=== PATIENT | female | born 1985 | race Caucasian/White ===

== ENCOUNTER 2017-04-27 17:56 | Inpatient (IN) | payer MEDICAID, OTHER ==
[2017-04-27 18:10] VITALS: BMI 31.3
--- NOTE | 2017-04-27 19:17 | C.PDOC ---
History Of Present Illness 31 y/o female presents to ED with complaints of worsening fatigue for 3 weeks. Patient was referred by PMD (Dr. Guerra) for outpatient labs on Monday and had a Hemoglobin of 7.8 and has scheduled elective tubal ligation with Dr. Love in the near future. Denies DUB, dark stools. Was running for exercise until about 3 weeks ago, not unable due to SOB. h/o GBP surgery 2008 with chronic iron deficiency anemia due to GI loss, usually well controlled with PO iron supplements but does NOT have a Waste Hand and has not had upper endoscopy since 2008. Patient reports sob when running and currently denies dizziness, palpitations, fever, chills or any other complaints at this time. Time Seen by Provider: 04/27/17 18:56 Chief Complaint (Nursing): Abnormal Labs History Per: Patient History/Exam Limitations: no limitations Onset/Duration Of Symptoms: Days Current Symptoms Are (Timing): Still Present Past Medical History Reviewed: Historical Data, Nursing Documentation, Vital Signs Vital Signs: Last Vital Signs Temp 98.0 F 04/27/17 18:12 Pulse 88 04/27/17 18:37 Resp 18 04/27/17 18:37 BP 106/70 04/27/17 18:37 Pulse Ox 99 04/27/17 21:13 - Medical History PMH: Anemia Surgical History: No Surg Hx - [facility] Procedures LOW CERVICAL (03/04/13) PACKED CELL TRANSFUSION (11/06/12) Family History: States: No Known Family Hx - Social History Hx Alcohol Use: Yes Hx Substance Use: No - Immunization History Hx Tetanus Toxoid Vaccination: No Hx Influenza Vaccination: No Hx Pneumococcal Vaccination: No Review Of Systems Except As Marked, All Systems Reviewed And Found Negative. Constitutional: Negative for: Fever, Chills Cardiovascular: Negative for: Palpitations Respiratory: Positive for: Shortness of Breath Gastrointestinal: Negative for: Nausea, Vomiting Skin: Negative for: Rash Neurological: Positive for: Other (fatigue) Physical Exam - Physical Exam Appears: Non-toxic, No Acute Distress Skin: Normal Color, Warm, Dry, No Rash Head: Atraumatic, Normacephalic Oral Mucosa: Moist Neck: Normal ROM, Supple Chest: Symmetrical Cardiovascular: Rhythm Regular Respiratory: Normal Breath Sounds, No Rales, No Rhonchi, No Wheezing Gastrointestinal/Abdominal: Soft, No Tenderness, No Guarding, No Rebound Extremity: Normal ROM, No Pedal Edema Neurological/Psych: Oriented x3, Normal Speech, Normal Motor, Normal Sensation ED Course And Treatment - Laboratory Results Result Diagrams: 04/27/17 19:31 04/27/17 19:20 O2 Sat by Pulse Oximetry: 99 (RA) Pulse Ox Interpretation: Normal Reevaluation Time: 21:36 Reassessment Condition: Improved - Physician Consult Information Outcome Of Conversation: [id number]: Stephen Love- no acute PIN CLEANER issues now, will consult PRN. 2114: stephen Blackmon- Hospitalist covering pts for Dr. Guerra, ok to admit. Please start blood transfusions. Medical Decision Making Medical Decision Making: probably chronic upper GI bleeding related to GBP 2008- requires GI consult- consider upper GI endoscopy. Disposition Doctor Will See Patient In The: Hospital Counseled Patient/Family Regarding: Studies Performed, Diagnosis - Disposition Disposition: HOSPITALIZED Disposition Time: 21:39 Condition: GOOD Forms: [facility] (Polish) - Clinical Impression Clinical Impression: Iron deficiency anemia - Scribe Statement The provider has reviewed the documentation as recorded by the Scribapple Morris All medical record entries made by the Dinhib[employer] were at my direction and personally dictated by me. I have reviewed the chart and agree that the record accurately reflects my personal performance of the history, physical exam, medical decision making, and the department course for this patient. I have also personally directed, reviewed, and agree with the discharge instructions and disposition.
[2017-04-27 19:39] LABS: CHLORIDE 101 mmol/L (98-107); POTASSIUM 3.7 mmol/L (3.6-5.2); SODIUM 135 mmol/L (132-148)
[2017-04-27 19:42] LABS: ALB/GLOB RATIO 1.5 (1.0-2.1); ALKALINE PHOSPHATASE 65 U/L (38-126); ALT/SGPT 38 U/L (9-52); AST/SGOT 24 U/L (14-36); BILIRUBIN,TOTAL 0.6 mg/dL (0.2-1.3); BLOOD UREA NITROGEN 11 mg/dL (7-17); CALCIUM 8.4 mg/dl (8.6-10.4); CARBON DIOXIDE 22 mmol/L (22-30); GFR AFRICAN-AMERICAN > 60; GLUCOSE,RANDOM 183 mg/dL (65-105); TOTAL PROTEIN 7.3 g/dL (6.3-8.3)
[2017-04-27 19:43] LABS: INR 1.1
[2017-04-27 20:10] LABS: BASO # 0.1 K/uL (0.0-0.2); BASO % 0.6 % (0.0-2.0); EOS # 0.1 K/uL (0.0-0.7); EOS % 1.5 % (0.0-4.0); HEMATOCRIT 25.1 % (34.0-47.0); LYMPH # 2.6 K/uL (1.0-4.3); LYMPH % 32.9 % (20.0-40.0); MEAN CORPUSCULAR HEMOGLOBIN 16.6 pg (27.0-31.0); MEAN CORPUSCULAR HGB CONC 29.1 g/dL (33.0-37.0); MEAN PLATELET VOLUME 8.6 fL (7.2-11.7); MONO # 0.8 K/uL (0.0-0.8); MONO % 10.2 % (0.0-10.0); RED CELL DISTRIBUTION WIDTH 19.5 % (11.5-14.5); WHITE BLOOD COUNT 7.9 K/uL (4.8-10.8)
[2017-04-27 20:10] LABS: RBC URINE 6 /hpf (0-3); TRANSITIONAL EPITHIAL < 1 /hpf (0-3); URINE BACTERIA MOD (<OCC); URINE BILIRUBIN NEGATIVE (NEGATIVE); URINE BLOOD 2+ (NEGATIVE); URINE COLOR Yellow (YELLOW); URINE GLUCOSE (UA) 3+ mg/dL (Normal); URINE KETONE NEGATIVE (NEGATIVE); URINE PROTEIN NEGATIVE (NEGATIVE); URINE UROBILINOGEN NORMAL mg/dL (0.2-1.0); WBC URINE 30 /hpf (0-5)
[2017-04-27 20:13] LABS: URINE LEUKOCYTE ESTERASE 3+ Leu/uL (Negative)
[2017-04-27 23:02] VITALS: RESP 20
--- NOTE | 2017-04-27 23:40 | CP.PCM.HP ---
<Neetu HurdJack - Last Filed: 04/28/17 02:49> History of Present Illness - History of Present Illness History of Present Illness: CC: "My primary doctor told me to come to the ED" HPI: 31 year old female with past medical history of diabetes and gastric bypass surgery presents to the ED because her primary doctor told her she was anemic and needed to go to the ER on Monday. Patient states she went to the ER at [facility] on Monday and they sent her home and stated she did not need a blood transfusion. Patient stated she followed up with her PMD and he told her once again to come to the ED. She stated she has had 2 blood transfusions in the past and that her anemia began after her gastric bypass surgery in 2008. Patient states she has never been seen by a GI doctor and states she has never had a colonoscopy or a endoscopy done. She states she recently had an abnormal papsmer and had an endometrial biopsy done in the office with her mannequin wig maker Dr. Love. Patient denies vaginal bleeding. She states she has been feeling tired for the past 2-3 weeks and she has been going to bed by 8:30pm which is not normal for her to go to sleep that early. She also states she has stopped running for 2 weeks. She denies shortness of breath, palpitations, chest pain, nausea, vomiting, hematuria, or blood in her stool. PMD: Dr. Shereen Guerra NET ARCHITECT: Dr. 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 Present on Admission - Present on Admission Any Indicators Present on Admission: No Review of Systems - Constitutional Constitutional: Fatigue. absent: Fever, Headache, Night Sweats, Weakness - EENT Eyes: absent: Blurred Vision, Change in Vision - Cardiovascular Cardiovascular: absent: Chest Pain, Dyspnea, Lightheadedness, Palpitations - Respiratory Respiratory: absent: Dyspnea - Gastrointestinal Gastrointestinal: absent: Constipation, Diarrhea, Nausea, Vomiting - Genitourinary Genitourinary: absent: Dysuria, Hematuria - Neurological Neurological: absent: Dizziness, Numbness, Headaches, Tingling, Weakness - Endocrine Endocrine: Fatigue. absent: Palpitations Past Patient History - Past Social History Smoking Status: Never Smoked - ENDOCRINE/METABOLIC Hx Diabetes Mellitus Type 2: Yes - HEMATOLOGICAL/ONCOLOGICAL Hx Anemia: Yes - PSYCHIATRIC Hx Substance Use: No - SURGICAL HISTORY Hx Surgeries: No - ANESTHESIA Hx Anesthesia: No Meds Allergies/Adverse Reactions: Allergies Allergy/AdvReac Type Severity Reaction Status Date / Time No Known Allergies Allergy Unverified 04/27/17 18:40 Physical Exam - Constitutional Appears: No Acute Distress - Head Exam Head Exam: ATRAUMATIC, NORMAL INSPECTION, NORMOCEPHALIC - Eye Exam Eye Exam: EOMI, Normal appearance, PERRL Pupil Exam: NORMAL ACCOMODATION - ENT Exam ENT Exam: Mucous Membranes Moist - Respiratory Exam Respiratory Exam: Clear to Auscultation Bilateral, NORMAL BREATHING PATTERN. absent: Rales, Rhonchi, Wheezes - Cardiovascular Exam Cardiovascular Exam: REGULAR RHYTHM, RRR, +S1, +S2. absent: JVD - GI/Abdominal Exam GI & Abdominal Exam: Normal Bowel Sounds, Soft. absent: Tenderness - Extremities Exam Extremities exam: Positive for: normal inspection. Negative for: pedal edema, tenderness - Neurological Exam Neurological exam: Alert, CN II-XII Intact, Oriented x3 - Expanded Neurological Exam Expanded Patient oriented to: person, place, time Sensory exam: Lower Extremity Light Touch: Normal, Upper Extremity Light Touch: Normal Neuro motor strength exam: Left Upper Extremity: 5, Right Upper Extremity: 5, Left Lower Extremity: 5, Right Lower Extremity: 5 Coma Scale Eye Opening: SPONTANEOUS Coma Scale Motor Response: OBEYS COMMANDS - Psychiatric Exam Psychiatric exam: Normal Affect, Normal Mood - Skin Skin Exam: Normal Color, Warm Results - Vital Signs Recent Vital Signs: Last Vital Signs Temp 98.3 F 04/27/17 22:45 Pulse 77 04/27/17 22:45 Resp 20 04/27/17 22:45 BP 106/67 04/27/17 22:45 Pulse Ox 99 04/27/17 21:44 - Labs Result Diagrams: 04/27/17 19:31 04/27/17 19:20 Labs: Laboratory Results - last 24 hr 04/27/17 04/27/17 04/27/17 19:20 19:31 19:31 WBC 7.9 RBC 4.40 Hgb 7.3 L Hct 25.1 L MCV 57.0 L MCH 16.6 L MCHC 29.1 L RDW 19.5 H Plt Count 304 MPV 8.6 Neut % (Auto) 54.8 Lymph % (Auto) 32.9 Armstrong % (Auto) 10.2 H Eos % (Auto) 1.5 Baso % (Auto) 0.6 Neut # 4.3 Lymph # 2.6 Armstrong # 0.8 Eos # 0.1 Baso # 0.1 PT 12.0 INR 1.1 APTT 27 Sodium 135 Potassium 3.7 Chloride 101 Carbon Dioxide 22 Anion Gap 16 BUN 11 Creatinine 0.7 Est GFR ( Amer) > 60 Est GFR (Non-Af Amer) > 60 Random Glucose 183 H Calcium 8.4 L Total Bilirubin 0.6 AST 24 ALT 38 Alkaline Phosphatase 65 Total Protein 7.3 Albumin 4.3 Globulin 2.9 Albumin/Globulin Ratio 1.5 Urine Color Urine Clarity Urine pH Ur Specific Spring Urine Protein Urine Glucose (UA) Urine Ketones Urine Blood Urine Nitrate Urine Bilirubin Urine Urobilinogen Ur Leukocyte Esterase Urine WBC (Auto) Urine RBC (Auto) Ur Squamous Epith Cells Ur Transition Epith Cell Urine Bacteria Urine HCG, Qual Urine Opiates Screen Urine Methadone Screen Ur Barbiturates Screen Ur Phencyclidine Scrn Ur Amphetamines Screen U Benzodiazepines Scrn U Oth Cocaine Metabols U Cannabinoids Screen Blood Type Antibody Screen 04/27/17 04/27/17 04/27/17 19:50 19:50 21:22 WBC RBC Hgb Hct MCV MCH MCHC RDW Plt Count MPV Neut % (Auto) Lymph % (Auto) Armstrong % (Auto) Eos % (Auto) Baso % (Auto) Neut # Lymph # Armstrong # Eos # Baso # PT INR APTT Sodium Potassium Chloride Carbon Dioxide Anion Gap BUN Creatinine Est GFR ( Amer) Est GFR (Non-Af Amer) Random Glucose Calcium Total Bilirubin AST ALT Alkaline Phosphatase Total Protein Albumin Globulin Albumin/Globulin Ratio Urine Color Yellow Urine Clarity Hazy Urine pH 5.0 Ur Specific Spring 1.028 Urine Protein Negative Urine Glucose (UA) 3+ H Urine Ketones Negative Urine Blood 2+ H Urine Nitrate Positive H Urine Bilirubin Negative Urine Urobilinogen Normal Ur Leukocyte Esterase 3+ H Urine WBC (Auto) 30 H Urine RBC (Auto) 6 H Ur Squamous Epith Cells 7 H Ur Transition Epith Cell < 1 Urine Bacteria Mod H Urine HCG, Qual Negative Urine Opiates Screen Negative Urine Methadone Screen Negative Ur Barbiturates Screen Negative Ur Phencyclidine Scrn Negative Ur Amphetamines Screen Negative U Benzodiazepines Scrn Negative U Oth Cocaine Metabols Negative U Cannabinoids Screen Negative Blood Type B POSITIVE Antibody Screen Negative Assessment & Plan - Assessment and Plan (Free Text) Assessment: 1.) Acute Anemia - H/H on admission (04/27): 7.3/.1 - Type & Cross - 1 unit of PRBC given - Monitor H/H - f/u stool occult blood x2 - f/u Iron studies - If acute anemia does not improve may need to consult GI as an inpatient vs. outpatient 2.) Prophylaxis - VTE contraindication secondary to acute anemia - Pepcid 20mg daily - SCDs Case discussed with Dr. Lorri Hurd PGY-1 <Roly Blackmon - Last Filed: 04/28/17 04:13> Results - Vital Signs Recent Vital Signs: Last Vital Signs Temp 98.1 F 04/28/17 01:58 Pulse 64 04/28/17 01:58 Resp 20 04/28/17 01:58 BP 104/64 04/28/17 01:58 Pulse Ox 97 04/28/17 00:00 - Labs Result Diagrams: 04/27/17 19:31 04/27/17 19:20 Labs: Laboratory Results - last 24 hr 04/27/17 04/27/17 04/27/17 19:20 19:31 19:31 WBC 7.9 RBC 4.40 Hgb 7.3 L Hct 25.1 L MCV 57.0 L MCH 16.6 L MCHC 29.1 L RDW 19.5 H Plt Count 304 MPV 8.6 Neut % (Auto) 54.8 Lymph % (Auto) 32.9 Armstrong % (Auto) 10.2 H Eos % (Auto) 1.5 Baso % (Auto) 0.6 Neut # 4.3 Lymph # 2.6 Armstrong # 0.8 Eos # 0.1 Baso # 0.1 PT 12.0 INR 1.1 APTT 27 Sodium 135 Potassium 3.7 Chloride 101 Carbon Dioxide 22 Anion Gap 16 BUN 11 Creatinine 0.7 Est GFR ( Amer) > 60 Est GFR (Non-Af Amer) > 60 Random Glucose 183 H Calcium 8.4 L Total Bilirubin 0.6 AST 24 ALT 38 Alkaline Phosphatase 65 Total Protein 7.3 Albumin 4.3 Globulin 2.9 Albumin/Globulin Ratio 1.5 Urine Color Urine Clarity Urine pH Ur Specific Spring Urine Protein Urine Glucose (UA) Urine Ketones Urine Blood Urine Nitrate Urine Bilirubin Urine Urobilinogen Ur Leukocyte Esterase Urine WBC (Auto) Urine RBC (Auto) Ur Squamous Epith Cells Ur Transition Epith Cell Urine Bacteria Urine HCG, Qual Urine Opiates Screen Urine Methadone Screen Ur Barbiturates Screen Ur Phencyclidine Scrn Ur Amphetamines Screen U Benzodiazepines Scrn U Oth Cocaine Metabols U Cannabinoids Screen Blood Type Antibody Screen 04/27/17 04/27/17 04/27/17 19:50 19:50 21:22 WBC RBC Hgb Hct MCV MCH MCHC RDW Plt Count MPV Neut % (Auto) Lymph % (Auto) Armstrong % (Auto) Eos % (Auto) Baso % (Auto) Neut # Lymph # Armstrong # Eos # Baso # PT INR APTT Sodium Potassium Chloride Carbon Dioxide Anion Gap BUN Creatinine Est GFR ( Amer) Est GFR (Non-Af Amer) Random Glucose Calcium Total Bilirubin AST ALT Alkaline Phosphatase Total Protein Albumin Globulin Albumin/Globulin Ratio Urine Color Yellow Urine Clarity Hazy Urine pH 5.0 Ur Specific Spring 1.028 Urine Protein Negative Urine Glucose (UA) 3+ H Urine Ketones Negative Urine Blood 2+ H Urine Nitrate Positive H Urine Bilirubin Negative Urine Urobilinogen Normal Ur Leukocyte Esterase 3+ H Urine WBC (Auto) 30 H Urine RBC (Auto) 6 H Ur Squamous Epith Cells 7 H Ur Transition Epith Cell < 1 Urine Bacteria Mod H Urine HCG, Qual Negative Urine Opiates Screen Negative Urine Methadone Screen Negative Ur Barbiturates Screen Negative Ur Phencyclidine Scrn Negative Ur Amphetamines Screen Negative U Benzodiazepines Scrn Negative U Oth Cocaine Metabols Negative U Cannabinoids Screen Negative Blood Type B POSITIVE Antibody Screen Negative Assessment & Plan - Date & Time Date: 04/28/17 (I have seen and examined the patient. I agree with the findings and plan of care as documented by Dr. Hurd. Patient with symptomatic anemia. History of gastric bypass. Check iron studies. B12 and Folate. Retic count. Transfuse 2 units PRBCs. Check stool OBx2. Monitor for acute changes in hemodynamic status.) Time: 04:11 Attending/Attestation - Attestation I have personally seen and examined this patient.: Yes I have fully participated in the care of the patient.: Yes I have reviewed all pertinent clinical information: Yes
[2017-04-28 07:49] VITALS: BP 95/66; PULSE 76; TEMP 97.8; O2SAT 96
[2017-04-28] MEDS: (Novolin R) Insulin Human Regular 100 units/ml vial SC SCH ×2 (08:15→12:20)
[2017-04-28 08:16] LABS: BASO % 0.4 % (0.0-2.0); EOS # 0.1 K/uL (0.0-0.7); EOS % 1.5 % (0.0-4.0); HEMATOCRIT 26.1 % (34.0-47.0); LYMPH # 2.1 K/uL (1.0-4.3); LYMPH % 29.8 % (20.0-40.0); MEAN CELL VOLUME 59.6 fL (81.0-99.0); MEAN CORPUSCULAR HEMOGLOBIN 18.4 pg (27.0-31.0); MEAN CORPUSCULAR HGB CONC 30.8 g/dL (33.0-37.0); MEAN PLATELET VOLUME 8.6 fL (7.2-11.7); MONO # 0.6 K/uL (0.0-0.8); MONO % 8.7 % (0.0-10.0); RED CELL DISTRIBUTION WIDTH 21.8 % (11.5-14.5); RETIC% 1.5 % (0.5-1.5); WHITE BLOOD COUNT 7.1 K/uL (4.8-10.8)
[2017-04-28 08:49] LABS: CHLORIDE 102 mmol/L (98-107); SODIUM 135 mmol/L (132-148)
[2017-04-28 08:51] LABS: ALB/GLOB RATIO 1.4 (1.0-2.1); ALKALINE PHOSPHATASE 57 U/L (38-126); ALT/SGPT 37 U/L (9-52); AST/SGOT 22 U/L (14-36); BILIRUBIN,TOTAL 1.4 mg/dL (0.2-1.3); BLOOD UREA NITROGEN 9 mg/dL (7-17); CARBON DIOXIDE 25 mmol/L (22-30); GFR AFRICAN-AMERICAN > 60; TOTAL PROTEIN 6.2 g/dL (6.3-8.3)
[2017-04-28 08:52] LABS: GLUCOSE,RANDOM 107 mg/dL (65-105); MAGNESIUM 1.5 mg/dL (1.6-2.3)
--- NOTE | 2017-04-28 12:49 | CP.PCM.DIS ---
<Madison Levy V - Last Filed: 04/29/17 23:39> Provider - Provider Date of Admission: 04/27/17 21:14 Attending physician: Roly Blackmon MD Diagnosis - Discharge Diagnosis (1) Symptomatic anemia Status: Acute Comment: s/p RBC transfusion. No adverse effects noted per nursing staff. Patient recommended compliance on PO iron supplementation and recommended to follow-up with GI for outpatient endoscopy. (2) History of gastric bypass Status: Chronic Comment: Patient encouraged to remain compliant on PO iron supplementation and MVI given her history of gastric bypass surgery 5 years ago. (3) Iron deficiency anemia Status: Chronic Comment: Patient encouraged to remain compliant on PO iron supplementation. Encourage absoprtion with vitamin C or orange juice. Encourage fiber intake to prevent constipaton. Given stool softeners to reduce constipation. Recommended to follow-up outpatient with GI for endoscopy in light of gastric bypass history. Hospital Course - Lab Results Lab Results: Most Recent Lab Values WBC 7.1 K/uL (4.8-10.8) 04/28/17 08:01 RBC 4.37 Mil/uL (3.80-5.20) 04/28/17 08:01 Hgb 8.0 g/dL (11.0-16.0) L 04/28/17 08:01 Hct 26.1 % (34.0-47.0) L 04/28/17 08:01 MCV 59.6 fL (81.0-99.0) L D 04/28/17 08:01 MCH 18.4 pg (27.0-31.0) L 04/28/17 08:01 MCHC 30.8 g/dL (33.0-37.0) L 04/28/17 08:01 RDW 21.8 % (11.5-14.5) H 04/28/17 08:01 Plt Count 264 K/uL (130-400) 04/28/17 08:01 MPV 8.6 fL (7.2-11.7) 04/28/17 08:01 Neut % (Auto) 59.6 % (50.0-75.0) 04/28/17 08:01 Lymph % (Auto) 29.8 % (20.0-40.0) 04/28/17 08:01 Assumption % (Auto) 8.7 % (0.0-10.0) 04/28/17 08:01 Eos % (Auto) 1.5 % (0.0-4.0) 04/28/17 08:01 Baso % (Auto) 0.4 % (0.0-2.0) 04/28/17 08:01 Neut # 4.2 K/uL (1.8-7.0) 04/28/17 08:01 Lymph # 2.1 K/uL (1.0-4.3) 04/28/17 08:01 Assumption # 0.6 K/uL (0.0-0.8) 04/28/17 08:01 Eos # 0.1 K/uL (0.0-0.7) 04/28/17 08:01 Baso # 0.0 K/uL (0.0-0.2) 04/28/17 08:01 Differential Comment 04/28/17 08:01 Retic Count 1.5 % (0.5-1.5) 04/28/17 08:01 PT 12.0 SECONDS (9.7-12.2) 04/27/17 19:31 INR 1.1 04/27/17 19:31 APTT 27 SECONDS (21-34) 04/27/17 19:31 Sodium 135 mmol/L (132-148) 04/28/17 08:01 Potassium 4.0 mmol/L (3.6-5.2) 04/28/17 08:01 Chloride 102 mmol/L (98-107) 04/28/17 08:01 Carbon Dioxide 25 mmol/L (22-30) 04/28/17 08:01 Anion Gap 11 (10-20) 04/28/17 08:01 BUN 9 mg/dL (7-17) 04/28/17 08:01 Creatinine 0.7 mg/dL (0.7-1.2) 04/28/17 08:01 Est GFR ( Amer) > 60 04/28/17 08:01 Est GFR (Non-Af Amer) > 60 04/28/17 08:01 POC Glucose (mg/dL) 115 mg/dL (65-110) H 04/28/17 10:52 Random Glucose 107 mg/dL (65-105) H 04/28/17 08:01 Calcium 8.0 mg/dl (8.6-10.4) L 04/28/17 08:01 Phosphorus 3.0 mg/dL (2.5-4.5) 04/28/17 08:01 Magnesium 1.5 mg/dL (1.6-2.3) L 04/28/17 08:01 Ferritin 3.2 ng/mL 04/28/17 08:01 Total Bilirubin 1.4 mg/dL (0.2-1.3) H 04/28/17 08:01 AST 22 U/L (14-36) 04/28/17 08:01 ALT 37 U/L (9-52) 04/28/17 08:01 Alkaline Phosphatase 57 U/L (38-126) 04/28/17 08:01 Total Protein 6.2 g/dL (6.3-8.3) L 04/28/17 08:01 Albumin 3.6 g/dL (3.5-5.0) 04/28/17 08:01 Globulin 2.6 gm/dL (2.2-3.9) 04/28/17 08:01 Albumin/Globulin Ratio 1.4 (1.0-2.1) 04/28/17 08:01 Vitamin B12 240 pg/mL (239-931) 04/28/17 08:01 Folate 12.0 ng/mL 04/28/17 08:01 Urine Color Yellow (YELLOW) 04/27/17 19:50 Urine Clarity Hazy (Clear) 04/27/17 19:50 Urine pH 5.0 (5.0-8.0) 04/27/17 19:50 Ur Specific Orwell 1.028 (1.003-1.030) 04/27/17 19:50 Urine Protein Negative mg/dL (NEGATIVE) 04/27/17 19:50 Urine Glucose (UA) 3+ mg/dL (Normal) H 04/27/17 19:50 Urine Ketones Negative mg/dL (NEGATIVE) 04/27/17 19:50 Urine Blood 2+ (NEGATIVE) H 04/27/17 19:50 Urine Nitrate Positive (NEGATIVE) H 04/27/17 19:50 Urine Bilirubin Negative (NEGATIVE) 04/27/17 19:50 Urine Urobilinogen Normal mg/dL (0.2-1.0) 04/27/17 19:50 Ur Leukocyte Esterase 3+ Josefa/uL (Negative) H 04/27/17 19:50 Urine WBC (Auto) 30 /hpf (0-5) H 04/27/17 19:50 Urine RBC (Auto) 6 /hpf (0-3) H 04/27/17 19:50 Ur Squamous Epith Cells 7 /hpf (0-5) H 04/27/17 19:50 Ur Transition Epith Cell < 1 /hpf (0-3) 04/27/17 19:50 Urine Bacteria Mod (<OCC) H 04/27/17 19:50 Urine HCG, Qual Negative (NEGATIVE) 04/27/17 19:50 Urine Opiates Screen Negative (NEGATIVE) 04/27/17 19:50 Urine Methadone Screen Negative (NEGATIVE) 04/27/17 19:50 Ur Barbiturates Screen Negative (NEGATIVE) 04/27/17 19:50 Ur Phencyclidine Scrn Negative (NEGATIVE) 04/27/17 19:50 Ur Amphetamines Screen Negative (NEGATIVE) 04/27/17 19:50 U Benzodiazepines Scrn Negative (NEGATIVE) 04/27/17 19:50 U Oth Cocaine Metabols Negative (NEGATIVE) 04/27/17 19:50 U Cannabinoids Screen Negative (NEGATIVE) 04/27/17 19:50 Blood Type B POSITIVE 04/27/17 21:22 Antibody Screen Negative 04/27/17 21:22 Discharge Plan - Follow Up Plan Condition: STABLE Disposition: HOME/ ROUTINE Instructions: Iron Supplements (By mouth), Laxative, Stool Softeners (By mouth) , Iron Rich Diet (DC), Iron Deficiency Anemia (DC), Anemia (DC) Additional Instructions: Please follow up with your primary medical physician within 1 week Please schedule an appointment with GI doctor for outpatient EGD. Please take medications as instructed. Please increase the fiber in diet to help for constipation. We suggest taking over the counter "Psyllium" as well. New Meds: Ferrous Sulfate 325 TID, and Colace 100mg TID. Cont. to take multivitamins and metformin. If your symptoms return or worsen, please return to emergency room. Referrals: Shereen Guerra MD [Medical Doctor] - Attending/Attestation - Attestation I have personally seen and examined this patient.: Yes I have fully participated in the care of the patient.: Yes I have reviewed all pertinent clinical information, including history, physical exam and plan: Yes Notes (Text): This is late computer entry for 04/28/2017. Patient seen, examined and case discussed with day-time resident. Patient s/p 1 unit of PRBC overnight. No adverse events noted. Patient reports she feels very energetic and wants to know if she can go to work. Patient is non-compliant with her iron supplementation and multivitamin s/p gastric bypass surgery from 5 years ago. Patient reports she sometimes remembers to take it and sometimes not. Instructed patient given part of gastric bypass surgery instruction is that she will be on for life given the nature of that surgery affects the absorption of fat soluble vitamins and iron. Patient also notes that part of the reason why she is not compliant is the constipation. Patient instructed she needs to increase fiber in her diet such can do with over the counter fiber supplement such as Benefiber or natural sources such as Psyillum husks which can add bulk to water, milk. Patient also instructed to take with [place] Juice (which has vitamin C) to help with absorption. Patient denies hx of heavy menstrual periods. Patient was also recommended by her PMD to follow-up with GI for endoscopy. Patient denies use of OTC NSAIDs or excessive alcohol use; patient instructed part of endoscopy to make sure there is no source of bleeding. Patient reports she will follow-up with GI as outpatient. Patient reports she is taking Metformin because she has started to gain weight since gastric bypass surgery; encourager lifestyle modifications and exercise regimen. Patient is stable for discharge. S/p blood transfusion. Encourage compliance on MVI, iron supplementation, both dietary recommendations to increase fiber and stool softeners to prevent constipation. patient to follow-up with GI as outpatient for endoscopy as outpatient. Discharge instructions discussed in details with patient at bedside. This is a brief summary of patient's hospitalization. Please see EMR for further details. <Ivette Kaplan - Last Filed: 05/01/17 20:29> Provider - Provider Date of Admission: 04/27/17 21:14 Attending physician: Roly Blackmon MD Time Spent in preparation of Discharge (in minutes): 35 Hospital Course - Lab Results Lab Results: Most Recent Lab Values WBC 7.1 K/uL (4.8-10.8) 04/28/17 08:01 RBC 4.37 Mil/uL (3.80-5.20) 04/28/17 08:01 Hgb 8.0 g/dL (11.0-16.0) L 04/28/17 08:01 Hct 26.1 % (34.0-47.0) L 04/28/17 08:01 MCV 59.6 fL (81.0-99.0) L D 04/28/17 08:01 MCH 18.4 pg (27.0-31.0) L 04/28/17 08:01 MCHC 30.8 g/dL (33.0-37.0) L 04/28/17 08:01 RDW 21.8 % (11.5-14.5) H 04/28/17 08:01 Plt Count 264 K/uL (130-400) 04/28/17 08:01 MPV 8.6 fL (7.2-11.7) 04/28/17 08:01 Neut % (Auto) 59.6 % (50.0-75.0) 04/28/17 08:01 Lymph % (Auto) 29.8 % (20.0-40.0) 04/28/17 08:01 Assumption % (Auto) 8.7 % (0.0-10.0) 04/28/17 08:01 Eos % (Auto) 1.5 % (0.0-4.0) 04/28/17 08:01 Baso % (Auto) 0.4 % (0.0-2.0) 04/28/17 08:01 Neut # 4.2 K/uL (1.8-7.0) 04/28/17 08:01 Lymph # 2.1 K/uL (1.0-4.3) 04/28/17 08:01 Assumption # 0.6 K/uL (0.0-0.8) 04/28/17 08:01 Eos # 0.1 K/uL (0.0-0.7) 04/28/17 08:01 Baso # 0.0 K/uL (0.0-0.2) 04/28/17 08:01 Differential Comment 04/28/17 08:01 Retic Count 1.5 % (0.5-1.5) 04/28/17 08:01 PT 12.0 SECONDS (9.7-12.2) 04/27/17 19:31 INR 1.1 04/27/17 19:31 APTT 27 SECONDS (21-34) 04/27/17 19:31 Sodium 135 mmol/L (132-148) 04/28/17 08:01 Potassium 4.0 mmol/L (3.6-5.2) 04/28/17 08:01 Chloride 102 mmol/L (98-107) 04/28/17 08:01 Carbon Dioxide 25 mmol/L (22-30) 04/28/17 08:01 Anion Gap 11 (10-20) 04/28/17 08:01 BUN 9 mg/dL (7-17) 04/28/17 08:01 Creatinine 0.7 mg/dL (0.7-1.2) 04/28/17 08:01 Est GFR ( Amer) > 60 04/28/17 08:01 Est GFR (Non-Af Amer) > 60 04/28/17 08:01 POC Glucose (mg/dL) 115 mg/dL (65-110) H 04/28/17 10:52 Random Glucose 107 mg/dL (65-105) H 04/28/17 08:01 Calcium 8.0 mg/dl (8.6-10.4) L 04/28/17 08:01 Phosphorus 3.0 mg/dL (2.5-4.5) 04/28/17 08:01 Magnesium 1.5 mg/dL (1.6-2.3) L 04/28/17 08:01 Ferritin 3.2 ng/mL 04/28/17 08:01 Total Bilirubin 1.4 mg/dL (0.2-1.3) H 04/28/17 08:01 AST 22 U/L (14-36) 04/28/17 08:01 ALT 37 U/L (9-52) 04/28/17 08:01 Alkaline Phosphatase 57 U/L (38-126) 04/28/17 08:01 Total Protein 6.2 g/dL (6.3-8.3) L 04/28/17 08:01 Albumin 3.6 g/dL (3.5-5.0) 04/28/17 08:01 Globulin 2.6 gm/dL (2.2-3.9) 04/28/17 08:01 Albumin/Globulin Ratio 1.4 (1.0-2.1) 04/28/17 08:01 Vitamin B12 240 pg/mL (239-931) 04/28/17 08:01 Folate 12.0 ng/mL 04/28/17 08:01 Urine Color Yellow (YELLOW) 04/27/17 19:50 Urine Clarity Hazy (Clear) 04/27/17 19:50 Urine pH 5.0 (5.0-8.0) 04/27/17 19:50 Ur Specific Orwell 1.028 (1.003-1.030) 04/27/17 19:50 Urine Protein Negative mg/dL (NEGATIVE) 04/27/17 19:50 Urine Glucose (UA) 3+ mg/dL (Normal) H 04/27/17 19:50 Urine Ketones Negative mg/dL (NEGATIVE) 04/27/17 19:50 Urine Blood 2+ (NEGATIVE) H 04/27/17 19:50 Urine Nitrate Positive (NEGATIVE) H 04/27/17 19:50 Urine Bilirubin Negative (NEGATIVE) 04/27/17 19:50 Urine Urobilinogen Normal mg/dL (0.2-1.0) 04/27/17 19:50 Ur Leukocyte Esterase 3+ Josefa/uL (Negative) H 04/27/17 19:50 Urine WBC (Auto) 30 /hpf (0-5) H 04/27/17 19:50 Urine RBC (Auto) 6 /hpf (0-3) H 04/27/17 19:50 Ur Squamous Epith Cells 7 /hpf (0-5) H 04/27/17 19:50 Ur Transition Epith Cell < 1 /hpf (0-3) 04/27/17 19:50 Urine Bacteria Mod (<OCC) H 04/27/17 19:50 Urine HCG, Qual Negative (NEGATIVE) 04/27/17 19:50 Urine Opiates Screen Negative (NEGATIVE) 04/27/17 19:50 Urine Methadone Screen Negative (NEGATIVE) 04/27/17 19:50 Ur Barbiturates Screen Negative (NEGATIVE) 04/27/17 19:50 Ur Phencyclidine Scrn Negative (NEGATIVE) 04/27/17 19:50 Ur Amphetamines Screen Negative (NEGATIVE) 04/27/17 19:50 U Benzodiazepines Scrn Negative (NEGATIVE) 04/27/17 19:50 U Oth Cocaine Metabols Negative (NEGATIVE) 04/27/17 19:50 U Cannabinoids Screen Negative (NEGATIVE) 04/27/17 19:50 Blood Type B POSITIVE 04/27/17 21:22 Antibody Screen Negative 04/27/17 21:22 - Hospital Course Hospital Course: 31 year old female with past medical history of diabetes and gastric bypass surgery presents to the ED because her primary doctor told her she was anemic and needed to go to the ER on Monday. She admitted for evaluation and treatment of symptomatic microcytic anemia. Patient was transfused 1 unit of PRBC's and her symptoms resolved. Patient's hemoglobin was 7.3 on admission. It was 8.0 post transfusion. EKG on admission read normal sinus rhythm with sinus arrythmia. Vitamin B12, Ferritin, and folate were within normal limits. Patient was told to follow up with PMD within 1 week and to schedule appoitment with GI physician for outpatient EGD. She was counseled on the importance of taking her iron supplement and vitamins. Perscribed medications include: Ferrous Sulfate and Colace. Suggestions were made to help reduce her iron induced constipation. Patient is agreeable to plan and medications. DC instructions * Please follow up with your primary medical physician within 1 week * Please schedule an appointment with GI doctor for outpatient EGD. * Please take medications as instructed. * Please increase the fiber in diet to help for constipation. We suggest taking over the counter "Psyllium" as well. * New Meds: Ferrous Sulfate 325 TID, and Colace 100mg TID. Cont. to take multivitamins and metformin. * If your symptoms return or worsen, please return to emergency room. Patient seen and discussed with Attending Ivette Kaplan PGY-1 - Date & Time of H&P Date of H&P: 04/28/17 Time of H&P: 12:28 Discharge Exam - Head Exam Head Exam: ATRAUMATIC, NORMAL INSPECTION, NORMOCEPHALIC - Eye Exam Eye Exam: EOMI, Normal appearance - ENT Exam ENT Exam: Mucous Membranes Moist - Respiratory Exam Respiratory Exam: Clear to PA & Lateral, NORMAL BREATHING PATTERN, UNREMARKABLE - Cardiovascular Exam Cardiovascular Exam: RRR, +S1, +S2 - GI/Abdominal Exam GI & Abdominal Exam: Normal Bowel Sounds, Soft. absent: Tenderness - Extremities Exam Extremities exam: normal capillary refill - Neurological Exam Neurological exam: Alert, Oriented x3 - Psychiatric Exam Psychiatric exam: Normal Affect, Normal Mood
--- NOTE | 2017-04-28 23:45 | CARD ---
APPROVED REPORT EKG Measurement Heart [id number] <Conclusion> Normal sinus rhythm with sinus arrhythmia Normal ECG
[2017-04-29] MEDS ORDERED: Pneumococcal 23-Valent Vaccine IM ONE (10:00)
== END 2017-04-28 14:34 | disposition home or self-care (01) | DRG 395 ==
LOC: C.ER 17:56 → C.3T 21:14
PROVIDERS: ADMIT Family Medicine; ATTEND Family Medicine
PROC: 30233N1 Transfusion of Nonautologous Red Blood Cells into Peripheral Vein, Percutaneous Approach (ICD-10-PCS; principal; 2017-04-27)
DX: D50.0 Iron deficiency anemia secondary to blood loss (chronic) (principal); K92.2 Gastrointestinal hemorrhage, unspecified; E11.9 Type 2 diabetes mellitus without complications; K59.00 Constipation, unspecified; Z80.3 Family history of malignant neoplasm of breast; Z82.49 Family history of ischemic heart disease and other diseases of the circulatory system; Z91.19 Patient's noncompliance with other medical treatment and regimen; Z98.84 Bariatric surgery status

== ENCOUNTER 2018-01-02 22:30 | Observation (INO) | payer MEDICAID ==
[2018-01-02 22:30] VITALS: BMI 31.3
--- NOTE | 2018-01-02 23:07 | C.PDOC ---
History Of Present Illness 32 years old female with PMHx of anemia presents to ED for complaints of feeling weak and tired. Patient states she has been transfused a few times. Denies chest pain, palpitation, or any other physical complaints. Patient states she spoke with her doctor and doctor advised her to come to ER. Time Seen by Provider: 01/02/18 23:07 Chief Complaint (Nursing): Dizziness/Lightheaded History Per: Patient History/Exam Limitations: no limitations Onset/Duration Of Symptoms: Hrs Current Symptoms Are (Timing): Still Present Associated Symptoms Preceding Syncopal Episode: No Predromal Symptoms (Sudden Onset) Seizure Or Post-ictal Symptoms: None Fall Associated With With Symptoms: No Severity: Moderate Pain Scale Rating Of: 4 Recent travel outside of the [place]: No - Symptoms Of CVA Associated Symptoms: denies: Impaired Speech, Seizure Activity, New Vision Deficit(Left), New Vision Deficit(Right), Decreased Ability To Walk, New Confusion Recent Aspirin Use: Unknown Current Coumadin Use?: Unknown Recent Head Trauma: No Past Medical History Reviewed: Historical Data, Nursing Documentation, Vital Signs Vital Signs: Last Vital Signs Temp 97.7 F 01/02/18 22:47 Pulse 60 01/02/18 22:47 Resp 20 01/02/18 22:47 BP 117/67 01/02/18 22:47 Pulse Ox 100 01/02/18 23:47 - Medical History PMH: Anemia Surgical History: Cholecystectomy (2008) - [facility] Procedures LOW CERVICAL (03/04/13) PACKED CELL TRANSFUSION (11/06/12) TRANSFUSE NONAUT RED BLOOD CELLS IN PERIPH VEIN, PERC (04/27/17) Family History: States: No Known Family Hx - Social History Hx Alcohol Use: No Hx Substance Use: No - Immunization History Hx Tetanus Toxoid Vaccination: Yes Hx Influenza Vaccination: No Hx Pneumococcal Vaccination: Yes Review Of Systems Constitutional: Positive for: Weakness, Other (Fatigue). Negative for: Fever, Chills Cardiovascular: Negative for: Chest Pain, Palpitations Respiratory: Negative for: Shortness of Breath Gastrointestinal: Negative for: Nausea, Vomiting, Abdominal Pain, Diarrhea Genitourinary: Negative for: Dysuria Musculoskeletal: Negative for: Back Pain Skin: Negative for: Rash Neurological: Negative for: Weakness, Numbness Psych: Negative for: Anxiety Physical Exam - Physical Exam Appears: Non-toxic Skin: Warm, Dry Head: Normacephalic Eye(s): bilateral: Conjunctiva Pale Oral Mucosa: Moist Neck: Trachea Midline, Supple Chest: Symmetrical Cardiovascular: Rhythm Regular Respiratory: No Rales, No Rhonchi, No Wheezing Gastrointestinal/Abdominal: Soft, No Tenderness Back: Normal Inspection Extremity: Normal ROM Extremity: Bilateral: Atraumatic, Normal Color And Temperature, Normal ROM Neurological/Psych: Oriented x3 Gait: Steady ED Course And Treatment - Laboratory Results Result Diagrams: 01/03/18 00:02 01/03/18 00:02 O2 Sat by Pulse Oximetry: 100 (RA) Pulse Ox Interpretation: Normal Progress Note: Administered IV fluids. Ordered BBK, blood work, and urinalysis. Disposition Discussed With Dr.: Roly Blackmon Comment: accepted the pt on his service and took over the care at 12:35 AM Doctor Will See Patient In The: ED Counseled Patient/Family Regarding: Studies Performed, Diagnosis - Disposition Disposition: HOSPITALIZED Disposition Time: 23:07 Condition: FAIR Forms: [facility] (Uzbek) - POA Present On Arrival: None - Clinical Impression Clinical Impression: Dizziness, Iron deficiency anemia, Symptomatic anemia, History of gastric bypass - Scribe Statement The provider has reviewed the documentation as recorded by the Scribe Berry Tovar All medical record entries made by the Scribe were at my direction and personally dictated by me. I have reviewed the chart and agree that the record accurately reflects my personal performance of the history, physical exam, medical decision making, and the department course for this patient. I have also personally directed, reviewed, and agree with the discharge instructions and disposition. Decision To Admit - Pt Status Changed To: Hospital Disposition Of: Observation - . Bed Request Type: Regular Admitting Physician: Roly Blackmon Patient Diagnosis: Dizziness, Iron deficiency anemia, Symptomatic anemia, History of gastric bypass
[2018-01-02] MEDS ORDERED: Sodium Chloride 0.9% 1,000 ML IV ONE (23:29)
[2018-01-03 00:11] LABS: BASO # 0.1 K/uL (0.0-0.2); BASO % 0.6 % (0.0-2.0); EOS # 0.1 K/uL (0.0-0.7); EOS % 1.2 % (0.0-4.0); HEMOGLOBIN 7.8 g/dL (11.0-16.0); LYMPH # 3.6 K/uL (1.0-4.3); LYMPH % 41.5 % (20.0-40.0); MEAN CELL VOLUME 60.7 fL (81.0-99.0); MEAN CORPUSCULAR HGB CONC 31.3 g/dL (33.0-37.0); MEAN PLATELET VOLUME 8.7 fL (7.2-11.7); MONO # 0.6 K/uL (0.0-0.8); MONO % 7.5 % (0.0-10.0); NEUT # 4.2 K/uL (1.8-7.0); NEUT % 49.2 % (50.0-75.0); RBC 4.11 Mil/uL (3.80-5.20); RED CELL DISTRIBUTION WIDTH 18.5 % (11.5-14.5); WHITE BLOOD COUNT 8.5 K/uL (4.8-10.8)
[2018-01-03 00:13] LABS: SQUAMOUS EPITHIAL 3 /hpf (0-5); URINE BILIRUBIN NEGATIVE (NEGATIVE); URINE BLOOD NEGATIVE (NEGATIVE); URINE CLARITY Clear (Clear); URINE COLOR Yellow (YELLOW); URINE GLUCOSE (UA) 2+ mg/dL (Normal); URINE LEUKOCYTE ESTERASE 1+ Leu/uL (Negative); URINE PROTEIN NEGATIVE (NEGATIVE)
[2018-01-03 00:14] LABS: INR 1.1; PROTHROMBIN TIME 11.8 SECONDS (9.7-12.2)
[2018-01-03 00:22] LABS: ALB/GLOB RATIO 1.3 (1.0-2.1); ALBUMIN 4.3 g/dL (3.5-5.0); ALT/SGPT 39 U/L (9-52); AST/SGOT 26 U/L (14-36); BLOOD UREA NITROGEN 14 mg/dL (7-17); CALCIUM 8.6 mg/dl (8.6-10.4); GFR AFRICAN-AMERICAN > 60; GFR NON-AFRICAN AMERICAN > 60; LIPASE 143 U/L (23-300)
[2018-01-03 00:24] LABS: HCG,QUALITATIVE URINE NEGATIVE (NEGATIVE)
--- NOTE | 2018-01-03 01:29 | CP.PCM.HP ---
<Meagan Sanchez - Last Filed: 01/03/18 01:43> History of Present Illness - History of Present Illness History of Present Illness: CC: "I feel lightheaded and dizzy." HPI: Patient is a 32 year old female with a history of DM, anemia, and depression, who presents to the ED with complaints of lightheadedness and dizziness for 3 weeks. She saw her PMD, Dr. Guerra, on the 12/27/17 for the same complaints and had her blood drawn. Patient's PMD called her today to tell her results and told her that because she is still symptomatic, she should go to the ER. The patient says her symptoms are worse with movement and exercise, and improve with rest. She takes ferrous sulfate 325mg twice a day, as prescribed. She says she has had symptomatic anemia in the past, has had 3 blood transfusions, and has been given iron infusions with Dr. Gonzalez. She also admits to heavy menstrual cycles lasting 7 days. LMP was 12/23/17. The patient currently denies chest pain, palpitations, shortness of breath, cough, vomiting , abdominal pain, diarrhea, constipation, blood in stool, dysuria, leg pain and swelling, and unusual or easy bruising. PMD: Dr. 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 Medications: Ferrous sulfate 325mg PO BID, Lexapro 10mg PO daily Allergies: NKDA Present on Admission - Present on Admission Any Indicators Present on Admission: No Review of Systems - Constitutional Constitutional: Fatigue, Headache, Lethargy. absent: Fever - EENT Eyes: absent: Change in Vision Ears: Dizziness - Cardiovascular Cardiovascular: Lightheadedness. absent: Chest Pain, Dyspnea, Leg Edema, Palpitations, Rapid Heart Rate - Respiratory Respiratory: absent: Cough, Dyspnea - Gastrointestinal Gastrointestinal: Nausea. absent: Abdominal Pain, Constipation, Diarrhea, Vomiting - Genitourinary Genitourinary: absent: Change in Urinary Stream, Dysuria, Hematuria - Neurological Neurological: Dizziness, Headaches - Endocrine Endocrine: Fatigue. absent: Palpitations, Polyuria Past Patient History - Infectious Disease Hx of Infectious Diseases: None - Past Medical History & Family History Past Medical History?: Yes - Past Social History Smoking Status: Never Smoked - CARDIAC Hx Cardiac Disorders: No - PULMONARY Hx Respiratory Disorders: No - NEUROLOGICAL Hx Neurological Disorder: No - HEENT Hx HEENT Problems: No - RENAL Hx Chronic Kidney Disease: No - ENDOCRINE/METABOLIC Hx Endocrine Disorders: Yes Hx Diabetes Mellitus Type 2: Yes - HEMATOLOGICAL/ONCOLOGICAL Hx Anemia: Yes - INTEGUMENTARY Hx Dermatological Problems: No - MUSCULOSKELETAL/RHEUMATOLOGICAL Hx Falls: No - GASTROINTESTINAL Hx Gastrointestinal Disorders: No - GENITOURINARY/GYNECOLOGICAL Hx Genitourinary Disorders: No - PSYCHIATRIC Hx Substance Use: No - SURGICAL HISTORY Hx Cholecystectomy: Yes (2008) - ANESTHESIA Hx Anesthesia: Yes Hx Anesthesia Reactions: No Meds Allergies/Adverse Reactions: Allergies Allergy/AdvReac Type Severity Reaction Status Date / Time No Known Allergies Allergy Verified 01/02/18 22:52 Physical Exam - Constitutional Appears: No Acute Distress - Head Exam Head Exam: ATRAUMATIC, NORMAL INSPECTION - Eye Exam Eye Exam: EOMI, PERRL Additional comments: Colored contacts present - ENT Exam ENT Exam: Mucous Membranes Moist - Respiratory Exam Respiratory Exam: Clear to Auscultation Bilateral, NORMAL BREATHING PATTERN. absent: Rales, Rhonchi, Wheezes, Respiratory Distress - Cardiovascular Exam Cardiovascular Exam: REGULAR RHYTHM, +S1, +S2. absent: Bradycardia, Tachycardia - GI/Abdominal Exam GI & Abdominal Exam: Normal Bowel Sounds, Soft. absent: Distended, Firm, Tenderness - Rectal Exam Rectal Exam: Deferred - Extremities Exam Extremities exam: Negative for: tenderness, pedal pulses present - Neurological Exam Neurological exam: Alert, CN II-XII Intact, Oriented x3 - Psychiatric Exam Psychiatric exam: Normal Affect, Normal Mood - Skin Skin Exam: Dry, Intact, Normal Color, Warm Results - Vital Signs Recent Vital Signs: Last Vital Signs Temp 97.7 F 01/02/18 22:47 Pulse 60 01/02/18 22:47 Resp 20 01/02/18 22:47 BP 117/67 01/02/18 22:47 Pulse Ox 100 01/03/18 00:36 - Labs Result Diagrams: 01/03/18 00:02 01/03/18 00:02 Labs: Laboratory Results - last 24 hr 01/03/18 01/03/18 01/03/18 00:02 00:02 00:02 WBC 8.5 RBC 4.11 Hgb 7.8 L Hct 24.9 L MCV 60.7 L MCH 19.0 L MCHC 31.3 L RDW 18.5 H Plt Count 359 MPV 8.7 Neut % (Auto) 49.2 L Lymph % (Auto) 41.5 H Moore % (Auto) 7.5 Eos % (Auto) 1.2 Baso % (Auto) 0.6 Neut # (Auto) 4.2 Lymph # (Auto) 3.6 Moore # (Auto) 0.6 Eos # (Auto) 0.1 Baso # (Auto) 0.1 PT 11.8 INR 1.1 APTT 30 Sodium Potassium Chloride Carbon Dioxide Anion Gap BUN Creatinine Est GFR ( Amer) Est GFR (Non-Af Amer) Random Glucose Calcium Total Bilirubin AST ALT Alkaline Phosphatase Total Protein Albumin Globulin Albumin/Globulin Ratio Lipase Urine Color Yellow Urine Clarity Clear Urine pH 6.0 Ur Specific [place] 1.028 Urine Protein Negative Urine Glucose (UA) 2+ H Urine Ketones Negative Urine Blood Negative Urine Nitrate Negative Urine Bilirubin Negative Urine Urobilinogen 2.0 H Ur Leukocyte Esterase 1+ H Urine WBC (Auto) 2 Urine RBC (Auto) 1 Ur Squamous Epith Cells 3 Urine HCG, Qual Negative Blood Type Antibody Screen 01/03/18 01/03/18 00:02 00:23 WBC RBC Hgb Hct MCV MCH MCHC RDW Plt Count MPV Neut % (Auto) Lymph % (Auto) Moore % (Auto) Eos % (Auto) Baso % (Auto) Neut # (Auto) Lymph # (Auto) Moore # (Auto) Eos # (Auto) Baso # (Auto) PT INR APTT Sodium 142 Potassium 4.1 Chloride 105 Carbon Dioxide 24 Anion Gap 16 BUN 14 Creatinine 0.7 Est GFR ( Amer) > 60 Est GFR (Non-Af Amer) > 60 Random Glucose 132 H Calcium 8.6 Total Bilirubin 0.6 AST 26 ALT 39 Alkaline Phosphatase 72 Total Protein 7.5 Albumin 4.3 Globulin 3.2 Albumin/Globulin Ratio 1.3 Lipase 143 Urine Color Urine Clarity Urine pH Ur Specific [place] Urine Protein Urine Glucose (UA) Urine Ketones Urine Blood Urine Nitrate Urine Bilirubin Urine Urobilinogen Ur Leukocyte Esterase Urine WBC (Auto) Urine RBC (Auto) Ur Squamous Epith Cells Urine HCG, Qual Blood Type B POSITIVE Antibody Screen Negative Assessment & Plan - Assessment and Plan (Free Text) Plan: Symptomatic Anemia - Hgb at admission: 7.8 - Type and cross - Transfusing 1 unit of PRBCs - Follow up repeat CBC post transfusion - Stool occult: f/u - Iron: f/u - TIBC: f/u - %sat: f/u - Ferritin: f/u - Retic count: f/u - Continue home medication Ferrous sulfate 325mg PO BID - Continue to monitor Type 2 Diabetes Mellitus - Patient does not take medication for DM- "does not want to take Metformin as it upsets her stomach" - Per the patient, A1c checked by PMD on the was 7.7 - ISS - Accuchecks - Hypoglycemic protocol Depression - Continue home medication: Lexapro 10mg PO daily Prophylaxis: - DVT: SCDs, no chemical anticoagulation due to anemia - GI: not indicated - Consistent low carb, heart healthy diet <Roly Blackmon - Last Filed: 01/03/18 06:39> Results - Vital Signs Recent Vital Signs: Last Vital Signs Temp 97.5 F L 01/03/18 05:35 Pulse 66 01/03/18 05:35 Resp 20 01/03/18 05:35 BP 108/73 01/03/18 05:35 Pulse Ox 97 01/03/18 02:00 - Labs Result Diagrams: 01/03/18 00:02 01/03/18 00:02 Labs: Laboratory Results - last 24 hr 01/03/18 01/03/18 01/03/18 00:02 00:02 00:02 WBC 8.5 RBC 4.11 Hgb 7.8 L Hct 24.9 L MCV 60.7 L MCH 19.0 L MCHC 31.3 L RDW 18.5 H Plt Count 359 MPV 8.7 Neut % (Auto) 49.2 L Lymph % (Auto) 41.5 H Moore % (Auto) 7.5 Eos % (Auto) 1.2 Baso % (Auto) 0.6 Neut # (Auto) 4.2 Lymph # (Auto) 3.6 Moore # (Auto) 0.6 Eos # (Auto) 0.1 Baso # (Auto) 0.1 Differential Comment PT 11.8 INR 1.1 APTT 30 Sodium Potassium Chloride Carbon Dioxide Anion Gap BUN Creatinine Est GFR ( Amer) Est GFR (Non-Af Amer) Random Glucose Calcium Total Bilirubin AST ALT Alkaline Phosphatase Total Protein Albumin Globulin Albumin/Globulin Ratio Lipase Urine Color Yellow Urine Clarity Clear Urine pH 6.0 Ur Specific [place] 1.028 Urine Protein Negative Urine Glucose (UA) 2+ H Urine Ketones Negative Urine Blood Negative Urine Nitrate Negative Urine Bilirubin Negative Urine Urobilinogen 2.0 H Ur Leukocyte Esterase 1+ H Urine WBC (Auto) 2 Urine RBC (Auto) 1 Ur Squamous Epith Cells 3 Urine HCG, Qual Negative Blood Type Antibody Screen 01/03/18 01/03/18 00:02 00:23 WBC RBC Hgb Hct MCV MCH MCHC RDW Plt Count MPV Neut % (Auto) Lymph % (Auto) Moore % (Auto) Eos % (Auto) Baso % (Auto) Neut # (Auto) Lymph # (Auto) Moore # (Auto) Eos # (Auto) Baso # (Auto) Differential Comment PT INR APTT Sodium 142 Potassium 4.1 Chloride 105 Carbon Dioxide 24 Anion Gap 16 BUN 14 Creatinine 0.7 Est GFR ( Amer) > 60 Est GFR (Non-Af Amer) > 60 Random Glucose 132 H Calcium 8.6 Total Bilirubin 0.6 AST 26 ALT 39 Alkaline Phosphatase 72 Total Protein 7.5 Albumin 4.3 Globulin 3.2 Albumin/Globulin Ratio 1.3 Lipase 143 Urine Color Urine Clarity Urine pH Ur Specific [place] Urine Protein Urine Glucose (UA) Urine Ketones Urine Blood Urine Nitrate Urine Bilirubin Urine Urobilinogen Ur Leukocyte Esterase Urine WBC (Auto) Urine RBC (Auto) Ur Squamous Epith Cells Urine HCG, Qual Blood Type B POSITIVE Antibody Screen Negative Assessment & Plan - Date & Time Date: 01/03/18 (I have seen and examined the patient. I agree with the findings and plan of care as documented by Dr. Sanchez. Patient with symptomatic anemia. Transfuse 1 unit PRBCs. Check iron studies. Prior episode of anemia. Also with history of diabetes. NISS and accuchecks. Monitor for acute changes.) Time: 06:38 Attending/Attestation - Attestation I have personally seen and examined this patient.: Yes I have fully participated in the care of the patient.: Yes I have reviewed all pertinent clinical information: Yes
[2018-01-03 03:03] VITALS: RESP 20
[2018-01-03 06:03] VITALS: TEMP 97.5
[2018-01-03] MEDS ORDERED: (Novolin R) Insulin Human Regular 100 units/ml vial SC SCH (07:30)
[2018-01-03 08:17] VITALS: BP 117/71; PULSE 76; O2SAT 97
[2018-01-03 09:10] LABS: BASO % 0.9 % (0.0-2.0); EOS # 0.1 K/uL (0.0-0.7); EOS % 1.4 % (0.0-4.0); HEMOGLOBIN 8.2 g/dL (11.0-16.0); LYMPH # 1.8 K/uL (1.0-4.3); MEAN CELL VOLUME 63.3 fL (81.0-99.0); MEAN CORPUSCULAR HEMOGLOBIN 20.2 pg (27.0-31.0); MEAN CORPUSCULAR HGB CONC 31.9 g/dL (33.0-37.0); MEAN PLATELET VOLUME 8.7 fL (7.2-11.7); MONO # 0.4 K/uL (0.0-0.8); MONO % 8.2 % (0.0-10.0); NEUT # 2.8 K/uL (1.8-7.0); NEUT % 54.5 % (50.0-75.0); RBC 4.04 Mil/uL (3.80-5.20); WHITE BLOOD COUNT 5.1 K/uL (4.8-10.8)
--- NOTE | 2018-01-03 09:23 | CP.PCM.DIS ---
Provider - Provider Date of Admission: 01/03/18 00:34 Attending physician: Roly Blackmon MD Time Spent in preparation of Discharge (in minutes): 25 Hospital Course - Lab Results Lab Results: Most Recent Lab Values WBC 5.1 K/uL (4.8-10.8) 01/03/18 08:55 RBC 4.04 Mil/uL (3.80-5.20) 01/03/18 08:55 Hgb 8.2 g/dL (11.0-16.0) L 01/03/18 08:55 Hct 25.5 % (34.0-47.0) L 01/03/18 08:55 MCV 63.3 fL (81.0-99.0) L D 01/03/18 08:55 MCH 20.2 pg (27.0-31.0) L 01/03/18 08:55 MCHC 31.9 g/dL (33.0-37.0) L 01/03/18 08:55 RDW 20.0 % (11.5-14.5) H 01/03/18 08:55 Plt Count 292 K/uL (130-400) 01/03/18 08:55 MPV 8.7 fL (7.2-11.7) 01/03/18 08:55 Neut % (Auto) 54.5 % (50.0-75.0) 01/03/18 08:55 Lymph % (Auto) 35.0 % (20.0-40.0) 01/03/18 08:55 [place] % (Auto) 8.2 % (0.0-10.0) 01/03/18 08:55 Eos % (Auto) 1.4 % (0.0-4.0) 01/03/18 08:55 Baso % (Auto) 0.9 % (0.0-2.0) 01/03/18 08:55 Neut # (Auto) 2.8 K/uL (1.8-7.0) 01/03/18 08:55 Lymph # (Auto) 1.8 K/uL (1.0-4.3) 01/03/18 08:55 [place] # (Auto) 0.4 K/uL (0.0-0.8) 01/03/18 08:55 Eos # (Auto) 0.1 K/uL (0.0-0.7) 01/03/18 08:55 Baso # (Auto) 0.0 K/uL (0.0-0.2) 01/03/18 08:55 Differential Comment 01/03/18 00:02 Retic Count 1.5 % (0.5-1.5) 01/03/18 08:55 PT 11.8 SECONDS (9.7-12.2) 01/03/18 00:02 INR 1.1 01/03/18 00:02 APTT 30 SECONDS (21-34) 01/03/18 00:02 Sodium 142 mmol/L (132-148) 01/03/18 00:02 Potassium 4.1 mmol/L (3.6-5.2) 01/03/18 00:02 Chloride 105 mmol/L (98-107) 01/03/18 00:02 Carbon Dioxide 24 mmol/L (22-30) 01/03/18 00:02 Anion Gap 16 (10-20) 01/03/18 00:02 BUN 14 mg/dL (7-17) 01/03/18 00:02 Creatinine 0.7 mg/dL (0.7-1.2) 01/03/18 00:02 Est GFR ( Amer) > 60 01/03/18 00:02 Est GFR (Non-Af Amer) > 60 01/03/18 00:02 POC Glucose (mg/dL) 132 mg/dL (65-110) H 01/03/18 07:14 Random Glucose 132 mg/dL (65-105) H 01/03/18 00:02 Calcium 8.6 mg/dl (8.6-10.4) 01/03/18 00:02 Total Bilirubin 0.6 mg/dL (0.2-1.3) 01/03/18 00:02 AST 26 U/L (14-36) 01/03/18 00:02 ALT 39 U/L (9-52) 01/03/18 00:02 Alkaline Phosphatase 72 U/L (38-126) 01/03/18 00:02 Total Protein 7.5 g/dL (6.3-8.3) 01/03/18 00:02 Albumin 4.3 g/dL (3.5-5.0) 01/03/18 00:02 Globulin 3.2 gm/dL (2.2-3.9) 01/03/18 00:02 Albumin/Globulin Ratio 1.3 (1.0-2.1) 01/03/18 00:02 Lipase 143 U/L (23-300) 01/03/18 00:02 Urine Color Yellow (YELLOW) 01/03/18 00:02 Urine Clarity Clear (Clear) 01/03/18 00:02 Urine pH 6.0 (5.0-8.0) 01/03/18 00:02 Ur Specific [place] 1.028 (1.003-1.030) 01/03/18 00:02 Urine Protein Negative mg/dL (NEGATIVE) 01/03/18 00:02 Urine Glucose (UA) 2+ mg/dL (Normal) H 01/03/18 00:02 Urine Ketones Negative mg/dL (NEGATIVE) 01/03/18 00:02 Urine Blood Negative (NEGATIVE) 01/03/18 00:02 Urine Nitrate Negative (NEGATIVE) 01/03/18 00:02 Urine Bilirubin Negative (NEGATIVE) 01/03/18 00:02 Urine Urobilinogen 2.0 mg/dL (0.2-1.0) H 01/03/18 00:02 Ur Leukocyte Esterase 1+ [place]/uL (Negative) H 01/03/18 00:02 Urine WBC (Auto) 2 /hpf (0-5) 01/03/18 00:02 Urine RBC (Auto) 1 /hpf (0-3) 01/03/18 00:02 Ur Squamous Epith Cells 3 /hpf (0-5) 01/03/18 00:02 Urine HCG, Qual Negative (NEGATIVE) 01/03/18 00:02 Blood Type B POSITIVE 01/03/18 00:23 Antibody Screen Negative 01/03/18 00:23 - Hospital Course Hospital Course: As per admission documentation Patient is a 32 year old female with a history of DM, anemia, and depression, who presents to the ED with complaints of lightheadedness and dizziness for 3 weeks. She saw her PMD, Dr. Guerra, on the 12/27/17 for the same complaints and had her blood drawn. Patient's PMD called her today to tell her results and told her that because she is still symptomatic, she should go to the ER. The patient says her symptoms are worse with movement and exercise, and improve with rest. She takes ferrous sulfate 325mg twice a day, as prescribed. She says she has had symptomatic anemia in the past, has had 3 blood transfusions, and has been given iron infusions with Dr. Gonzalez. She also admits to heavy menstrual cycles lasting 7 days. LMP was 12/23/17. The patient currently denies chest pain, palpitations, shortness of breath, cough, vomiting, abdominal pain, diarrhea, constipation, blood in stool, dysuria, leg pain and swelling, and unusual or easy bruising. Hospital course Patient was admitted for symptomatic anemia with a known history of iron deficiency anemia. Hgb 7.8 but patient was complaining of dizziness. Patient was transfused 1 unit of pRBCs. Patient's known baseline is low 8's. Iron studies showed: Iron 37; TIBC 466; %sat 8; Ferritin 3.1. Patient states that all of her symptoms resolved after being transfused one unit overnight. She feels back to normal and would like to be discharged home. Repeat Hgb was 8.2 ( pt's baseline). Patient was discharged home with the following instructions. Discharge Instructions Patient is to be discharged home per Dr. eFrnando Patient is to follow up with her primary care physician, Dr. Shereen Guerra, within one week. Patient is to follow up with her financial services counselor, Dr. Gonzalez, within two weeks. Patient is to continue taking her home medications as previously prescribed. No new prescriptions were given. Patient states she has all of her medications and does not need any at this time. If patient experiences any new or worsening symptoms, please go directly to the nearest emergency facility. Discharge Exam - Head Exam Head Exam: ATRAUMATIC, NORMAL INSPECTION - Eye Exam Eye Exam: EOMI, Normal appearance - ENT Exam ENT Exam: Mucous Membranes Moist - Respiratory Exam Respiratory Exam: Clear to PA & Lateral, NORMAL BREATHING PATTERN, UNREMARKABLE. absent: Accessory Muscle Use, Wheezes, Respiratory Distress - Cardiovascular Exam Cardiovascular Exam: REGULAR RHYTHM, +S1, +S2 - GI/Abdominal Exam GI & Abdominal Exam: Soft, Unremarkable. absent: Distended, Firm, Rigid, Tenderness - Extremities Exam Extremities exam: normal inspection, pedal pulses present - Neurological Exam Neurological exam: Alert, Oriented x3 - Psychiatric Exam Psychiatric exam: Normal Affect, Normal Mood - Skin Skin Exam: Dry, Warm Discharge Plan - Follow Up Plan Condition: FAIR Disposition: HOME/ ROUTINE Instructions: Anemia Caused by Low Iron, Adult (DC), Dizziness, Nonvertigo, (DC ) Additional Instructions: Patient is to be discharged home per Dr. Fernando Patient is to follow up with her primary care physician, Dr. Shereen Guerra, within one week. Patient is to follow up with her financial services counselor, Dr. Gonzalez, within two weeks. Patient is to continue taking her home medications as previously prescribed. No new prescriptions were given. Patient states she has all of her medications and does not need any at this time. If patient experiences any new or worsening symptoms, please go directly to the nearest emergency facility. Referrals: Dion Gonzalez MD [Staff Provider] - Shereen Guerra MD [Medical Doctor] -
[2018-01-03 09:29] LABS: IRON 37 ug/dL (37-170)
[2018-01-03 09:44] LABS: % IRON SATURATION 8 (20-55); TOTAL IRON BINDING CAPACITY 466 ug/dL (250-450)
== END 2018-01-03 10:10 | disposition home or self-care (01) ==
LOC: C.ER 22:30 → C.3T 01-03 00:34 → C.9E 01-03 00:34 → C.3T 01-03 00:43
PROVIDERS: ADMIT Family Medicine; ATTEND Family Medicine
DX: D50.9 Iron deficiency anemia, unspecified (principal); E11.9 Type 2 diabetes mellitus without complications; F32.9 Major depressive disorder, single episode, unspecified; R42 Dizziness and giddiness
CPT/HCPCS: 36430; 80053; 81001; 82728; 82948; 83540; 83550; 83690; 84703; 85025; 85044; 85610; 85730; 86850; 86900; 86920; 96360; G0378; J7030; P9051

== ENCOUNTER 2018-07-29 12:32 | Emergency (ER) | payer MEDICAID, OTHER ==
[2018-07-29 12:33] VITALS: BMI 31.3
[2018-07-29 12:50] VITALS: RESP 20; TEMP 97.7
[2018-07-29] MEDS ORDERED: Sodium Chloride 0.9% 1,000 ML IV ONE (13:18)
--- NOTE | 2018-07-29 13:20 | C.PDOC ---
History Of Present Illness 33 year old female presents to the complaining of headache and dizziness for one week and palpitations since this morning. Reports she has had similar symptoms in the past when she has anemia. Also states she has had 3 blood transfusions since she had Gastric bypass surgery in 2008. Last blood transfusion was on 02/17. LNMP 07/27/18. PMD: Antonio Hernández Time Seen by Provider: 07/29/18 13:08 Chief Complaint (Nursing): Palpitations History Per: Patient History/Exam Limitations: no limitations Onset/Duration Of Symptoms: Days Current Symptoms Are (Timing): Still Present Past Medical History Reviewed: Historical Data, Nursing Documentation, Vital Signs Vital Signs: Last Vital Signs Temp 97.7 F 07/29/18 12:45 Pulse 75 07/29/18 12:45 Resp 20 07/29/18 12:45 BP Pulse Ox 100 07/29/18 12:45 - Medical History PMH: Anemia, Diabetes (Type 2) Denies: Chronic Kidney Disease Surgical History: Cholecystectomy (2008) Other Surgeries: Gastric Bypass - [facility] Procedures LOW CERVICAL (03/04/13) PACKED CELL TRANSFUSION (11/06/12) TRANSFUSE NONAUT RED BLOOD CELLS IN PERIPH VEIN, PERC (04/27/17) Family History: States: Diabetes - Social History Hx Alcohol Use: No Hx Substance Use: No - Immunization History Hx Tetanus Toxoid Vaccination: Yes Hx Influenza Vaccination: Yes Hx Pneumococcal Vaccination: Yes Review Of Systems Except As Marked, All Systems Reviewed And Found Negative. Constitutional: Negative for: Fever, Chills Cardiovascular: Positive for: Palpitations. Negative for: Chest Pain Respiratory: Negative for: Cough, Shortness of Breath Gastrointestinal: Negative for: Nausea, Vomiting, Diarrhea Neurological: Positive for: Headache, Dizziness Physical Exam - Physical Exam Appears: Non-toxic, No Acute Distress Skin: Warm, Dry Head: Normacephalic Eye(s): bilateral: Conjunctiva Pale Nose: Normal Oral Mucosa: Moist Neck: Supple Chest: Symmetrical Cardiovascular: Rhythm Regular Respiratory: Normal Breath Sounds, No Rales, No Rhonchi, No Wheezing Extremity: Capillary Refill (less than 2 sec to b/l digits ) Neurological/Psych: Oriented x3, Normal Speech Gait: Steady ED Course And Treatment - Laboratory Results Result Diagrams: 07/29/18 13:33 07/29/18 13:33 ECG: Interpreted By Me, Viewed By Me ECG Rhythm: Sinus Rhythm ECG Interpretation: No Acute Changes Interpretation Of ECG: No ST/T wave changes Rate From EC O2 Sat by Pulse Oximetry: 100 (RA) Pulse Ox Interpretation: Normal Disposition Counseled Patient/Family Regarding: Studies Performed, Diagnosis, Need For Followup - Disposition Disposition: HOME/ ROUTINE Disposition Time: 14:32 Condition: FAIR Additional Instructions: Ms. Walters, thank you for letting us take care of you today. Return to the ER if your symptoms worsen or if any problems. Follow up with your freight car cleaner this week for a re-evaluation. Continue to take your iron supplements. Instructions: Anemia of Chronic Disease (DC) Forms: [employer] (Ukrainian) Print Language: LUX[place]BOURGISH - POA Present On Arrival: None - Clinical Impression Clinical Impression: Anemia, Palpitations - Scribe Statement The provider has reviewed the documentation as recorded by the Scribe Sandi Baires All medical record entries made by the Scribe were at my direction and personally dictated by me. I have reviewed the chart and agree that the record accurately reflects my personal performance of the history, physical exam, medical decision making, and the department course for this patient. I have also personally directed, reviewed, and agree with the discharge instructions and disposition.
[2018-07-29 13:40] LABS: MEAN CELL VOLUME 62.6 fL (81.0-99.0); MONO # 0.6 K/uL (0.0-0.8); NEUT # 3.6 K/uL (1.8-7.0)
[2018-07-29 13:51] LABS: ALB/GLOB RATIO 1.4 (1.0-2.1); ALBUMIN 4.2 g/dL (3.5-5.0); ALT/SGPT 20 U/L (9-52); AST/SGOT 20 U/L (14-36); BLOOD UREA NITROGEN 10 mg/dL (7-17); CALCIUM 8.4 mg/dl (8.6-10.4); GFR NON-AFRICAN AMERICAN > 60
[2018-07-29 13:56] LABS: INR 1.1; PROTHROMBIN TIME 12.3 SECONDS (9.7-12.2)
[2018-07-29 14:11] LABS: BASO % 0.5 % (0.0-2.0); EOS # 0.1 K/uL (0.0-0.7); EOS % 0.8 % (0.0-4.0); LYMPH % 31.8 % (20.0-40.0); MEAN CORPUSCULAR HEMOGLOBIN 18.7 pg (27.0-31.0); MEAN CORPUSCULAR HGB CONC 29.9 g/dL (33.0-37.0); MEAN PLATELET VOLUME 8.8 fL (7.2-11.7); MONO % 9.1 % (0.0-10.0); NEUT % 57.8 % (50.0-75.0); NRBC % 0.1 % (0.0-2.0); RBC 4.23 Mil/uL (3.80-5.20); RED CELL DISTRIBUTION WIDTH 19.4 % (11.5-14.5); WHITE BLOOD COUNT 6.2 K/uL (4.8-10.8)
[2018-07-29 14:12] LABS: HEMOGLOBIN 7.9 g/dL (11.0-16.0)
[2018-07-29 14:24] VITALS: BP 120/56; PULSE 85
[2018-07-29 14:38] VITALS: O2SAT 100
--- NOTE | 2018-08-01 22:38 | CARD ---
APPROVED REPORT Date of service: 07/29/2018 EKG Measurement Heart [id number] <Conclusion> Normal sinus rhythm Normal ECG
== END 2018-07-29 14:46 | disposition home or self-care (01) ==
LOC: C.ER 12:32
DX: R00.2 Palpitations (principal); D64.9 Anemia, unspecified; E11.9 Type 2 diabetes mellitus without complications; Z98.84 Bariatric surgery status
CPT/HCPCS: 80053; 82948; 85025; 85610; 85730; 86850; 86900; 96360; 99285; J7030